=== PATIENT | male | born 1980 | race Caucasian/White ===

== ENCOUNTER 2018-08-03 23:06 | Emergency (ER) | payer MEDICAID ==
[~2018-08-03] VITALS: Ht 172.7 cm; Wt 67.0 kg
[~2018-08-03 23:06] MED LIST: HYDR-3927
[2018-08-04] MEDS ORDERED: AMOXICILLIN/POTASSIUM CLAVULANATE 875/125MG TAB PO ONE (02:30)
[2018-08-04] MEDS ORDERED: IBUPROFEN 600MG TABLET PO ONE (02:30)
[2018-08-04] MEDS ORDERED: HYDROCODONE/ACETAMINOPHEN 5/325MG TABLET PO ONE (02:30)
[2018-08-04 03:30] VITALS: BP 131/74
== END 2018-08-04 04:00 | disposition home or self-care (01) ==
LOC: ER 23:06
DX: K04.7 Periapical abscess without sinus (principal); F41.9 Anxiety disorder, unspecified; F17.200 Nicotine dependence, unspecified, uncomplicated; Z79.899 Other long term (current) drug therapy
CPT/HCPCS: 99284

== ENCOUNTER 2018-10-14 14:49 | Emergency (ER) | payer MEDICAID ==
[~2018-10-14] VITALS: Ht 172.7 cm; Wt 67.0 kg
[2018-10-14 20:36] VITALS: BP 128/84
== END 2018-10-14 20:39 | disposition home or self-care (01) ==
LOC: ER 14:49
DX: S20.212A Contusion of left front wall of thorax, initial encounter (principal); F41.9 Anxiety disorder, unspecified; F32.9 Major depressive disorder, single episode, unspecified; F10.20 Alcohol dependence, uncomplicated; F12.10 Cannabis abuse, uncomplicated; F17.200 Nicotine dependence, unspecified, uncomplicated; W51.XXXA Accidental striking against or bumped into by another person, initial encounter; Y93.89 Activity, other specified; Y92.89 Other specified places as the place of occurrence of the external cause; Y99.8 Other external cause status; Y90.9 Presence of alcohol in blood, level not specified
CPT/HCPCS: 71045; 99283

== ENCOUNTER 2018-12-10 20:05 | Emergency (ER) | payer MEDICAID, MEDICARE ==
[~2018-12-10] VITALS: Ht 172.7 cm; Wt 69.0 kg
[2018-12-10] MEDS ORDERED: ONDANSETRON HCL 4MG/2ML INJ IV STA (22:21)
[2018-12-10] MEDS ORDERED: MORPHINE SULFATE 4 MG/ML CPJ (NOT FOR IM USE) IV STA (22:21)
[2018-12-10] MEDS ORDERED: SODIUM CHLORIDE 0.9% 1,000 ML IV ONE (22:21)
[2018-12-10] MEDS ORDERED: METHYLPREDNISOLONE SOD SUCC 125 MG/2 ML VIAL IV STA (22:21)
[2018-12-10] MEDS ORDERED: IPRATROPIUM/ALBUTEROL 0.5-3(2.5)MG/3ML NEB HHN ONE (22:30)
[2018-12-10] MEDS ORDERED: LEVOFLOXACIN 750MG PREMIX 150 ML IV ONE (22:30)
[2018-12-10 23:04] LABS: BASOPHILS % 0.8 % (0.0-2.0); EOSINOPHILS % 8.3 % (0.0-5.0); HEMATOCRIT. 44.5 % (42.0-52.0); HEMOGLOBIN. 15.8 g/dL (14.0-18.0); LYMPHOCYTES % 32.8 % (20.0-50.0); MEAN CORPUSCULAR HEMOGLOBIN 37.7 pg (28.0-32.0); MEAN CORPUSCULAR VOLUME 106.6 fL (80.0-94.0); MEAN PLATELET VOLUME 7.9 fl (7.4-10.4); NEUTROPHILS % 51.1 % (40.0-76.0); PLATELET 201 x1000/uL (130-400); RED BLOOD CELL COUNT 4.18 mill/uL (4.7-6.1); RED CELL DISTRIBUTION WIDTH 12.5 % (11.6-14.6)
[2018-12-10 23:13] LABS: CHLORIDE 108 mEq/L (98-107)
[2018-12-10 23:26] LABS: ETHANOL BLOOD 348 mg/dL
[2018-12-11 03:15] VITALS: BP 121/72
== END 2018-12-11 03:21 | disposition home or self-care (01) ==
LOC: ER 20:05
DX: J20.9 Acute bronchitis, unspecified (principal); S20.212A Contusion of left front wall of thorax, initial encounter; R03.0 Elevated blood-pressure reading, without diagnosis of hypertension; W11.XXXA Fall on and from ladder, initial encounter; Y93.89 Activity, other specified; Y92.89 Other specified places as the place of occurrence of the external cause; F10.10 Alcohol abuse, uncomplicated; Y90.8 Blood alcohol level of 240 mg/100 ml or more; R74.8 Abnormal levels of other serum enzymes; F17.210 Nicotine dependence, cigarettes, uncomplicated; Z71.6 Tobacco abuse counseling
CPT/HCPCS: 36415; 71045; 80053; 80320; 83605; 83690; 83880; 84484; 85025; 87040; 94640; 96365; 96375; 99284; 99406; J1956; J2270; J2405; J2930; J7030; J7620; Z7610; G0480